=== PATIENT | male | born 1965 | race African-American/Black ===

== ENCOUNTER 2019-02-04 20:49 | Emergency (ER) | payer OTHER ==
[~2019-02-04] VITALS: Ht 180.3 cm; Wt 92.2 kg
[2019-02-04] MEDS ORDERED: HYDR25TAB PO (20:59)
[2019-02-04] MEDS ORDERED: NORV5TAB PO (20:59)
[2019-02-04] MEDS ORDERED: ALBUTEROL SULFATE 2.5 MG/0.5 ML INH NEB SOLN INH ONE (21:15)
[2019-02-04] MEDS ORDERED: IPRATROPIUM 0.5MG/ALBUTEROL 2.5MG INH SOL UD 3ML (DUONEB)(J7620) NEB ONE (21:15)
[2019-02-04] MEDS ORDERED: NS 1,000 ML IV ONE ×2 (21:15→23:00)
[2019-02-04 21:22] LABS: BASO % 0.3 % (0.0-1.0); EOS % 0.3 % (0.0-3.0); HEMATOCRIT 44.5 % (42.0-52.0); HEMOGLOBIN 15.2 g/dl (13.5-17.5); LYMPH # 1.6 10^3/uL (1.5-4.5); LYMPH % 13.4 % (24.0-44.0); MEAN CORPUSCULAR HEMOGLOBIN 31.1 pg (27.0-33.0); MEAN CORPUSCULAR HGB CONC 34.2 g/dl (32.0-36.5); MEAN CORPUSCULAR VOLUME 91.2 fl (80.0-96.0); MONO # 0.8 10^3/uL (0.0-0.8); NEUTROPHILS # 9.4 10^3/uL (1.8-7.7); NEUTROPHILS % 78.5 % (36.0-66.0); PLATELET COUNT, AUTOMATED 165 10^3/uL (150-450); RED BLOOD COUNT 4.88 10^6/uL (4.30-6.10); WHITE BLOOD COUNT 11.9 10^3/uL (4.0-10.0)
[2019-02-04 21:35] LABS: INR 1.08; PROTHROMBIN TIME 13.7 SECONDS (11.8-14.0)
[2019-02-04 21:38] LABS: D-DIMER QUANT 453.9 ng/ml (<500)
[2019-02-04 21:48] LABS: ALBUMIN 4.3 GM/DL (3.2-5.2); ALT/SGPT 21 U/L (12-78); BILIRUBIN,DIRECT 0.3 MG/DL (0.0-0.2); BILIRUBIN,TOTAL 1.7 MG/DL (0.2-1.0); BLOOD UREA NITROGEN 19 MG/DL (7-18); CALCIUM LEVEL 9.4 MG/DL (8.5-10.1); CARBON DIOXIDE LEVEL 28 MEQ/L (21-32); CHLORIDE LEVEL 107 MEQ/L (98-107); CK-MB VALUE MASS 2.1 NG/ML (<3.6); CPK CREATINE PHOSPHOKINASE 491 U/L (39-308); CREATININE FOR GFR 1.77 MG/DL (0.70-1.30); GLOMERULAR FILTRATION RATE 42.7 (>56); GLUCOSE, FASTING 131 MG/DL (70-100); MB/CK RELATIVE INDEX 0.43 (< OR =4); NT-PRO BNP 46 PG/ML (<125); POTASSIUM SERUM 3.9 MEQ/L (3.5-5.1); SODIUM LEVEL 142 MEQ/L (136-145); TOTAL PROTEIN 7.6 GM/DL (6.4-8.2); TROPONIN I < 0.02 NG/ML (< 0.10)
[2019-02-04] MEDS ORDERED: dexameTHASONE 20 MG/5 ML VIAL (J1100) IV ONE (22:30)
[2019-02-04] MEDS ORDERED: PROV108A INH (23:28)
[2019-02-04] MEDS ORDERED: PRED20TA PO (23:28)
[2019-02-04] MEDS ORDERED: DOXY-350 PO (23:29)
[2019-02-05] VITALS: BP 157/88
--- NOTE | 2019-02-05 05:44 | ECGEPIP ---
[facility] - ED Test Date: 2019-02-04 Pat Name: KLAUS MIKE Department: Room: - Gender: Male Buffer Automatic: ISELA : 1965 Requested By: COOPER Bob Order Number: [id number] Reading MD: Vasiliy Daniels Measurements Intervals [place] Rate: 84 P: 45 AL: 148 QRS: 63 QRSD: 93 T: 14 QT: 361 QTc: 429 Interpretive Statements SINUS RHYTHM POSSIBLE LEFT ATRIAL ENLARGEMENT NSTTW ABNORMALITIES BASELINE ARTIFACT AFFECTS INTERPRETATION NO PRIORS FOR COMPARISON Electronically Signed on 02-05-2019 5:43:48 EDT by Vasiliy Daniels
--- NOTE | 2019-02-06 09:31 | REP ---
AP PORTABLE CHEST: 02/04/2019. Clinical history: Dyspnea and cough. Findings. No prior study. Lungs are well inflated. There is no infiltrate, effusion, atelectasis or mass. The heart, mediastinal and hilar contours are grossly unremarkable. Aorta and airway intact. Bones without acute finding. There are minor degenerative changes in the spine. Impression: 1. No acute cardiopulmonary disease. Electronically Signed by Basil Parry MD 02/06/2019 08:16 P
== END 2019-02-05 00:16 | disposition home or self-care (01) ==
LOC: M ED 20:49
DX: J45.909 Unspecified asthma, uncomplicated (principal); E86.0 Dehydration; I10 Essential (primary) hypertension; Z79.899 Other long term (current) drug therapy; Z91.018 Allergy to other foods; F17.210 Nicotine dependence, cigarettes, uncomplicated
CPT/HCPCS: 71045; 80048; 80076; 82550; 82553; 83605; 83880; 84443; 84484; 85025; 85379; 85610; 93005; 93041; 94640; 94760; 96361; 96374; 99285; J1100